=== PATIENT | female | born 2005 ===

== ENCOUNTER 2024-12-23 18:02 | Emergency (ER) | payer SELFPAY ==
[2024-12-23 18:14] VITALS: BP 125/70; PULSE 86; RESP 16; TEMP 98.4
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
== END 2024-12-23 19:57 | disposition left against medical advice (07) ==
LOC: EC 18:02
DX: O9A.312 Physical abuse complicating pregnancy, second trimester (principal); O99.332 Smoking (tobacco) complicating pregnancy, second trimester; F17.200 Nicotine dependence, unspecified, uncomplicated; Z3A.16 16 weeks gestation of pregnancy
CPT/HCPCS: 76805; 99284